=== PATIENT | male | born 1935 | race Caucasian/White ===

== ENCOUNTER 2019-06-05 13:05 | Day surgery (SDC) | payer MEDICARE, OTHER ==
[~2019-06-05] VITALS: Ht 182.9 cm; Wt 94.1 kg
[~2019-06-05 13:05] MED LIST: CELEBREX 200MG200 MG PO; FLEX-A-MIN PO; FLOMAX 0.40.4 MG/CAP PO; GAS RELIEF80 MG PO; GLUCOPHAGE1000 MG PO; JANUVIA25 MG PO; MICROZIDE12.5 MG PO; NEXIUM 40MG40 MG PO; OMEGA 31000 MG PO; SLEEP AID50 MG PO; TYLENOL 325MG325 MG PO
[2019-06-05 13:49] VITALS: BP 129/81; PULSE 83; TEMP 97.6
[2019-06-05] MEDS ORDERED: PROTONIX 40MG T40 MG PO (14:00)
[2019-06-05] MEDS ORDERED: JANUVIA 100MG100 MG PO (14:01)
[2019-06-05] MEDS ORDERED: JARDIANCE10 PO (14:01)
[2019-06-05] MEDS ORDERED: FLOMAX 0.40.4 MG/CAP PO (14:03)
[2019-06-05] MEDS ORDERED: CELEBREX 200MG200 MG PO (14:04)
[2019-06-05 14:15] VITALS: BP 111/64; PULSE 87; TEMP 97.4
--- NOTE | 2019-06-05 14:15 | NUR ---
Patient brought back to [facility] 2 via cart. Ambulated to chair without difficulty. Placed on monitors, stable. IV infusing without difficulty. Denies pain or nausea. Requesting cranberry juice and pudding. Warm blanket provided, call amaro within reach. Will continue to monitor.
[2019-06-05 14:30] VITALS: BP 108/64; PULSE 77
--- NOTE | 2019-06-05 14:30 | NUR ---
Daughter arrived at bedside. Explained that MD would like him to come back on Saturday for colonoscopy. Instructions provided. Office to call pt with time. Pt would like toast and cranberry juice. Vitals stable. states pt may leave without speaking to him.
[2019-06-05 14:45] VITALS: BP 118/77; PULSE 80
--- NOTE | 2019-06-05 14:45 | NUR ---
Patient states he is ready to go home at this time. IV removed. Patient to get dressed at this time.
--- NOTE | 2019-06-05 15:00 | NUR ---
Discharge instructions reviewed with patient and daughter all questions answered. Colonoscopy prep reviewed, all questions answered. Patient brought down to lobby via wheel chair. To be driven home by daughter.
== END 2019-06-05 15:00 | disposition home or self-care (01) ==
LOC: SDCO 13:05
DX: R10.13 Epigastric pain (principal); R19.5 Other fecal abnormalities; K29.70 Gastritis, unspecified, without bleeding; K44.9 Diaphragmatic hernia without obstruction or gangrene; E11.9 Type 2 diabetes mellitus without complications; K57.30 Diverticulosis of large intestine without perforation or abscess without bleeding; Z88.1 Allergy status to other antibiotic agents; Z88.8 Allergy status to other drugs, medicaments and biological substances
CPT/HCPCS: J2250; J3010

== ENCOUNTER 2019-06-09 13:59 | Day surgery (SDC) | payer MEDICARE, OTHER ==
[~2019-06-09] VITALS: Ht 182.9 cm; Wt 92.7 kg
[~2019-06-09 13:59] MED LIST changes: +JANUVIA 100MG100 MG PO; +JARDIANCE10 PO; +PROTONIX 40MG T40 MG PO
[2019-06-09 14:14] VITALS: BP 124/78; PULSE 89; TEMP 97.5
[2019-06-09] MEDS ORDERED: ALEVE 220MG220 MG PO (14:28)
[2019-06-09] MEDS ORDERED: SIMETHICONE80 MG PO (14:28)
--- NOTE | 2019-06-09 15:50 | NUR ---
The patient ambulated to the bathroom independently using a steady gait and appeared to tolerate the activity well. The patient is still waiting to go to his procedure. Call light is within reach. The patient denies any needs at this time. Will continue to monitor the patient.
[2019-06-09 16:45] VITALS: BP 108/75; PULSE 91; TEMP 97.6
--- NOTE | 2019-06-09 16:45 | NUR ---
The patient arrived back to [place] [facility] from the endoscopy suite at this time. The patient ambulated from the cart to recliner in his room with the stand by assistance of two nurses and appeared to tolerate the activity well. Post procedure vital signs were started at this time. The patient requests to try some cranberry juice and a muffin at this time. Call light is within reach. Will continue to monitor the patinet.
[2019-06-09 17:03] VITALS: BP 113/78; PULSE 86
--- NOTE | 2019-06-09 17:03 | NUR ---
The patient is sitting up in the recliner and appears to be tolerating the food and drink well. The patient's vital signs appear stable. Call light is within reach. Will continue to monitor the patient.
[2019-06-09 17:15] VITALS: BP 120/70; PULSE 80
--- NOTE | 2019-06-09 17:15 | NUR ---
Discharge instructions were reviewed with the patient at this time. He verbalized understanding and have no questions for the nurse at this time. The patient's IV to his right hand was removed and a pressure dressing was applied to the site. The patient is going to get dressed and notify the staff when he is ready to be escorted out. The patient's daughter was contacted by the nurse and is on her way to pick the patient up.
--- NOTE | 2019-06-09 17:25 | NUR ---
The patient was escorted out via wheelchair to a private vehicle by DIAMANTE Lyles. The patient's belongings and discharge paperwork were sent with him. The patient's daughter is present to drive him home.
== END 2019-06-09 17:25 | disposition home or self-care (01) ==
LOC: SDCO 13:59
DX: K92.1 Melena (principal); K57.30 Diverticulosis of large intestine without perforation or abscess without bleeding; K58.9 Irritable bowel syndrome, unspecified; E11.9 Type 2 diabetes mellitus without complications; K21.9 Gastro-esophageal reflux disease without esophagitis; Z90.49 Acquired absence of other specified parts of digestive tract; Z88.8 Allergy status to other drugs, medicaments and biological substances
CPT/HCPCS: J2250; J3010

== ENCOUNTER → 2019-08-31 | Outpatient (CLI) | payer MEDICARE, OTHER ==
[~2019-08-31] VITALS: Ht 182.9 cm; Wt 95.0 kg
[~2019-08-31] MED LIST changes: +ALEVE 220MG220 MG PO; +FIBER GUMMIES2.5 GM PO; +PROBIOTIC GOLD1 EACH PO; +SIMETHICONE80 MG PO; +TRELEGY ELLIPT1 EACH IH
[2019-08-31 06:22] VITALS: BP 150/84; PULSE 75
[2019-08-31 07:52] VITALS: BP 125/64; PULSE 88
[2019-08-31 07:53] VITALS: BP 133/72; PULSE 87
[2019-08-31 07:54] VITALS: BP 134/71; PULSE 82
[2019-08-31 07:55] VITALS: BP 138/71; PULSE 82
== END ==
LOC: COL.CARD 06:09
DX: R07.9 Chest pain, unspecified (principal); R06.00 Dyspnea, unspecified; K27.4 Chronic or unspecified peptic ulcer, site unspecified, with hemorrhage; J44.9 Chronic obstructive pulmonary disease, unspecified
CPT/HCPCS: A9500; J2785

== ENCOUNTER → 2019-09-03 | Outpatient (CLI) | payer MEDICARE, OTHER | LOC: RT 07:30 → COL.PUL 11:30 | DX: J44.9 Chronic obstructive pulmonary disease, unspecified (principal); K27.4 Chronic or unspecified peptic ulcer, site unspecified, with hemorrhage ==

== ENCOUNTER → 2019-09-17 | Outpatient (CLI) | payer MEDICARE, OTHER | LOC: COL.PUL 07:45 | DX: J44.9 Chronic obstructive pulmonary disease, unspecified (principal); F17.210 Nicotine dependence, cigarettes, uncomplicated ==

== ENCOUNTER 2019-09-25 12:56 | Day surgery (SDC) | payer MEDICARE, OTHER ==
[2019-09-25] VITALS (10 sets, daily range): BP systolic 121–169; BP diastolic 72–94; PULSE 62–74; TEMP 98.1
[~2019-09-25] VITALS: Ht 182.9 cm; Wt 93.8 kg
[2019-09-25 13:49] LABS: HEMATOCRIT 42.7 % (42.0-52.0); HEMOGLOBIN 14.2 g/dl (13.5-18.0); MEAN CELL VOLUME 98 fl (80.0-100.0); MEAN CORPUSCULAR HEMOGLOBIN 33 pg (27.0-31.0); MEAN CORPUSCULAR HGB CONC 33 g/dl (33.0-37.0); PLATELET COUNT 239 K/mm3 (130-400); RED BLOOD COUNT 4.35 M/mm3 (4.20-5.60); REDCELL DISTRIBUTION WIDTH-CV 12.5 % (11.5-14.5)
[2019-09-25 13:56] LABS: CALCIUM 9.3 mg/dL (8.4-10.2); CREATININE, serum 0.85 (0.66-1.25); POTASSIUM 4.1 mmol/L (3.4-5.0)
[2019-09-25 14:05] LABS: INR 1.2 (0.8-3.0); PROTHROMBIN TIME 12.9 SECONDS (9.7-12.8)
[2019-09-25 14:07] LABS: PARTIAL THROMBOPLASTIN TIME 35.1 SECONDS (26.0-37.0)
--- NOTE | 2019-09-25 15:34 | NUR ---
SEE AWILDA FOR ALL MEDICATION ADMINISTRATION TIMES AND INTRA AND POST SEDATION ASSESSMENTS
--- NOTE | 2019-09-25 15:55 | NUR ---
Pt is back from laborer driver, bs report from Adilene BOBBY. Pt is awake and alert, pwd, cms intact to rt hand, wctm.
--- NOTE | 2019-09-25 19:05 | NUR ---
TR BAND WAS REMOVED AT 1735, SITE REMAINED FREE OF BLEEDING OR HEMATOMA, SITE DRESSED WITH A BANDAID THEN A COMPRESSION DRESSING WITH A 2X2 AND COBAN. CMS INTACT DISTAL. PT ADVISED TO LOOSEN DRESSING IF ANY SIGN OF CIRCULATORY COMPROMISE LIKE TINGLING TO FINGERS OR DECREASED CAP REFILL. IV WAS DC'D CATH INTACT, DRESSING APPLIED. PT WAS ESCORTED TO EXIT VIA WHEELCHAIR WHERE HIS DAUGHTER WAS WAITING TO PICK HIM UP.
--- NOTE | 2019-09-25 19:11 | NUR ---
10 CC AIR HAS BEEN REMOVED FROM BAND, SITE LOOKS GOOD. I HAVE REVIEWED DC AND F/U INSTRUCTIONS WITH PATIENT. HE DOES NOT HAVE ANY QUESTIONS AT THIS TIME/ PT HAS BEEN AMBULATORY IN ROOM WITH STEADY GAIT, HAS VOIDED, HAS BEEN ABLE TO EAT DINNER.
== END 2019-09-25 19:17 | disposition home or self-care (01) ==
LOC: COL.CAR 12:56
PROVIDERS: Internal Medicine Interventional Cardiology
DX: I25.119 Atherosclerotic heart disease of native coronary artery with unspecified angina pectoris (principal); R94.39 Abnormal result of other cardiovascular function study; J44.9 Chronic obstructive pulmonary disease, unspecified; Z87.891 Personal history of nicotine dependence; Z79.51 Long term (current) use of inhaled steroids; Z90.49 Acquired absence of other specified parts of digestive tract; Z11.59 Encounter for screening for other viral diseases
CPT/HCPCS: J1644; J2250; J3010

== ENCOUNTER 2020-04-11 16:29 | Inpatient (IN) | payer MEDICARE, OTHER ==
[~2020-04-11] VITALS: Ht 182.9 cm; Wt 96.3 kg
[2020-04-11 17:03] LABS: BASO % 0.3 % (0.0-2.0); EOS # 0.1 (0.0-0.7); EOS % 1.4 % (0-4.0); GRAN # 5.8 (1.4-6.5); GRAN % 73.5 % (42.2-75.2); HEMATOCRIT 42.1 % (42.0-52.0); HEMOGLOBIN 14.6 g/dl (13.5-18.0); LYMPH # 1.1 (1.2-3.4); LYMPH % 13.4 % (20.0-51.0); MEAN CELL VOLUME 97 fl (80.0-100.0); MEAN CORPUSCULAR HEMOGLOBIN 34 pg (27.0-31.0); MEAN CORPUSCULAR HGB CONC 35 g/dl (33.0-37.0); MEAN PLATELET VOLUME 8.9 fl (7.4-10.4); MONO # 0.9 (0.1-0.6); PLATELET COUNT 245 K/mm3 (130-400); RED BLOOD COUNT 4.36 M/mm3 (4.20-5.60); REDCELL DISTRIBUTION WIDTH-CV 12.4 % (11.5-14.5)
[2020-04-11 17:20] LABS: ALANINE AMINOTRANSFERASE 26 U/L (4-49); ALBUMIN 3.8 gm/dL (3.5-5.0); ALKALINE PHOSPHATASE 86 U/L (50-136); ANION GAP 9 mmol/L (7-16); AST,SGOT 31 U/L (15-37); BILIRUBIN,TOTAL 0.9 mg/dL (0.0-1.0); BLOOD UREA NITROGEN 14 mg/dL (9-20); C-REACTIVE PROTEIN 5.1 mg/dL (0.0-0.9); CALCIUM 8.7 mg/dL (8.4-10.2); CARBON DIOXIDE 27 mmol/L (22-30); CHLORIDE 102 mmol/L (98-107); CREATININE, serum 0.75 (0.66-1.25); GLUCOSE 146 mg/dL (74-106); LIPASE 110 U/L (23-300); POTASSIUM 3.6 mmol/L (3.4-5.0); SODIUM 138 mmol/L (137-145); TOTAL PROTEIN 7.2 gm/dL (6.4-8.2)
[2020-04-11 17:29] LABS: TROPONIN-I < 0.012 ng/mL (0.000-0.035)
[2020-04-11 21:26] VITALS: BP 130/67; PULSE 74; TEMP 97.8
[2020-04-11 21:34] VITALS: BP 130/67; PULSE 74; TEMP 97.8
--- NOTE | 2020-04-11 22:05 | NUR ---
Recieved patient from ER. He is alert and oriented. He is on room air with SPO2 of 91%. RT placed him on O2 at 2lpm via NC. Assesment and med rec completed. Patient denies pain. With INT on left AC. Informed patient regarding sputum sample. Call light within reach. He is independent in the room. Bases of lungs are diminshed. Instructed patient on lab works in the morning and frequency of accuchecks.
[2020-04-11 23:24] VITALS: BP 131/60; PULSE 72; TEMP 98
[2020-04-12 03:39] VITALS: BP 133/58; PULSE 66; TEMP 97.6
[2020-04-12 07:32] VITALS: BP 119/61; PULSE 80; TEMP 97.8
--- NOTE | 2020-04-12 09:00 | NUR ---
Shift assessment complete. Pt sitting up in bed eating breakfast. NC off pt at this time, pt reports takes it on and off as needed. Sats stable w/o O2. Reports mild SOA when up moving around. Heart RRR, lungs CTA, A&Ox4. Denies needs at this time. Call light in reach.
[2020-04-12 09:47] LABS: BASO % 0.1 % (0.0-2.0); GRAN # 7.4 (1.4-6.5); GRAN % 84.9 % (42.2-75.2); HEMATOCRIT 41.7 % (42.0-52.0); HEMOGLOBIN 14.6 g/dl (13.5-18.0); LYMPH # 0.7 (1.2-3.4); LYMPH % 8.2 % (20.0-51.0); MEAN CELL VOLUME 96 fl (80.0-100.0); MEAN CORPUSCULAR HEMOGLOBIN 34 pg (27.0-31.0); MEAN CORPUSCULAR HGB CONC 35 g/dl (33.0-37.0); MEAN PLATELET VOLUME 9.3 fl (7.4-10.4); MONO # 0.5 (0.1-0.6); MONO % 6.2 % (1.7-9.3); PLATELET COUNT 293 K/mm3 (130-400); RED BLOOD COUNT 4.36 M/mm3 (4.20-5.60); REDCELL DISTRIBUTION WIDTH-CV 12.2 % (11.5-14.5)
[2020-04-12 10:05] LABS: ALBUMIN 3.8 gm/dL (3.5-5.0); CALCIUM 8.9 mg/dL (8.4-10.2); CREATININE, serum 0.71 (0.66-1.25); POTASSIUM 3.7 mmol/L (3.4-5.0); TOTAL PROTEIN 7.2 gm/dL (6.4-8.2)
--- NOTE | 2020-04-12 11:14 | NUR ---
The patient is Covid positive. Ski Molder attemtped to contact the patient via room phone and he did not answer. SW contacted the patient's daughter, Roberto to complete intake. The patient lives in [place] with Roberto. The patient is independent. He does have a cane, walker, shower chair and other DME but does not need them. The equipment belonged to his late . The patient does not have advanced directives in the EMR but Roberto states they are complete and designate her. The patient has another child, a son named Jerri Bui. The plan is for the patient to return home at discharge. PT/OT ordered.
[2020-04-12 11:25] VITALS: BP 120/62; PULSE 86; TEMP 97.2
[2020-04-12 16:08] VITALS: BP 120/65; PULSE 77; TEMP 97.9
--- NOTE | 2020-04-12 18:55 | NUR ---
Received report from Yudith. Seen patient sitting in bed, eating his dinner and watching TV. He is on O2 at 2lpm via NC. He denies needs at this time. Will see patient again.
[2020-04-12 19:44] VITALS: BP 132/65; PULSE 71; TEMP 97.6
--- NOTE | 2020-04-12 21:00 | NUR ---
Assesment done. Patient denies pain. No difficulty of breathing. Glucose at 177mg/dl. Still for sputum specimen.
[2020-04-13 08:00] VITALS: BP 117/50; PULSE 58; TEMP 97.7
[2020-04-13 12:01] VITALS: BP 128/64; PULSE 67; TEMP 97.8
[2020-04-13 12:37] LABS: BASO % 0.1 % (0.0-2.0); GRAN # 7.7 (1.4-6.5); GRAN % 79.9 % (42.2-75.2); HEMATOCRIT 36.1 % (42.0-52.0); HEMOGLOBIN 12.9 g/dl (13.5-18.0); LYMPH % 10.9 % (20.0-51.0); MEAN CELL VOLUME 96 fl (80.0-100.0); MEAN CORPUSCULAR HEMOGLOBIN 34 pg (27.0-31.0); MEAN CORPUSCULAR HGB CONC 36 g/dl (33.0-37.0); MEAN PLATELET VOLUME 9.3 fl (7.4-10.4); MONO # 0.8 (0.1-0.6); MONO % 8.4 % (1.7-9.3); PLATELET COUNT 325 K/mm3 (130-400); RED BLOOD COUNT 3.76 M/mm3 (4.20-5.60); REDCELL DISTRIBUTION WIDTH-CV 12.4 % (11.5-14.5)
[2020-04-13 13:44] LABS: CALCIUM 8.5 mg/dL (8.4-10.2); CREATININE, serum 0.71 (0.66-1.25); POTASSIUM 3.8 mmol/L (3.4-5.0)
[2020-04-13 16:11] VITALS: BP 128/72; PULSE 64; TEMP 98
--- NOTE | 2020-04-13 17:51 | NUR ---
Patient has had uneventful shift. Showered. Remains indepedent in room and is doing well. No complaitns of pain or discomfort.
--- NOTE | 2020-04-13 20:00 | NUR ---
Assessment complete. Patient is alert and oriented with no complaints of pain. Lung sounds are clear and patient is breathing well on RA. Heart rate is regular with normal rate. L a/c IV flushes well. No new concerns at this time, will continue to monitor.
[2020-04-13 20:08] VITALS: BP 133/63; PULSE 62; TEMP 97.6
[2020-04-14] VITALS (7 sets, daily range): BP systolic 112–139; BP diastolic 55–79; PULSE 54–74; TEMP 97.5–98.2
--- NOTE | 2020-04-14 05:00 | NUR ---
Patient has had a restful, uneventful night. He has remained on RA and is afebrile. He is currently resting in bed. Call light in reach.
[2020-04-14 07:31] LABS: BASO % 0.1 % (0.0-2.0); GRAN # 7.9 (1.4-6.5); GRAN % 83.1 % (42.2-75.2); HEMOGLOBIN 12.6 g/dl (13.5-18.0); LYMPH # 0.9 (1.2-3.4); LYMPH % 9.5 % (20.0-51.0); MEAN CELL VOLUME 96 fl (80.0-100.0); MEAN CORPUSCULAR HEMOGLOBIN 33 pg (27.0-31.0); MEAN CORPUSCULAR HGB CONC 34 g/dl (33.0-37.0); MEAN PLATELET VOLUME 9.2 fl (7.4-10.4); MONO # 0.7 (0.1-0.6); MONO % 6.8 % (1.7-9.3); PLATELET COUNT 321 K/mm3 (130-400); RED BLOOD COUNT 3.85 M/mm3 (4.20-5.60); REDCELL DISTRIBUTION WIDTH-CV 12.3 % (11.5-14.5)
[2020-04-14 07:38] LABS: HEMATOCRIT 36.8 % (42.0-52.0)
[2020-04-14 07:44] LABS: BILIRUBIN,TOTAL 0.4 mg/dL (0.0-1.0); CALCIUM 8.6 mg/dL (8.4-10.2); CREATININE, serum 0.68 (0.66-1.25); POTASSIUM 3.9 mmol/L (3.4-5.0)
--- NOTE | 2020-04-14 09:31 | NUR ---
Assessment complete. Patient sitting up in bed eating breakfast on entry. States he had a pretty good night. Pt remains on 1L of O2 at this time. No complaints of pain or discomfort. Patient independent in room with no issues. No other needs. Call light is in reach.
--- NOTE | 2020-04-14 19:37 | NUR ---
Received report from Gosia. Seen patient awake in bed, watching TV. He is on O2 at 1lpm via NC. He denies pain. With INT on left AC flushes well. He reports having watery stools this morning. He requests for sherbet. Informed him I can give one after checking his blood glucose. No other needs at this time.
[2020-04-15 03:25] VITALS: BP 123/53; PULSE 60; TEMP 97.5
--- NOTE | 2020-04-15 06:57 | NUR ---
Patient had uneventful night. He is still on O2 at 1lpm via NC. Glucose this morning is 154mg/dl. No other needs noted. Endorsed to day shift.
[2020-04-15 08:47] VITALS: BP 138/60; PULSE 62; TEMP 97.4
--- NOTE | 2020-04-15 10:45 | NUR ---
Patient alert and oriented, denies pain, shortness of air, diarrhea/bloody stool. no new symptoms. Patient ambulate independently in the room. express good appetite towards meal. 90% on 1.0L, increased to 1.5L at 92%. Patient said he is anticipating discharge today, resting in bed at this time.
[2020-04-15] MEDS ORDERED: DECADRON6 MG PO (11:54)
[2020-04-15] MEDS ORDERED: DOXYCYCLINE 10100 MG PO (11:58)
[2020-04-15] MEDS ORDERED: OMNICEF 300MG300 MG PO (11:59)
[2020-04-15 12:00] VITALS: BP 137/68; PULSE 59; TEMP 97.3
[2020-04-15] MEDS ORDERED: PROAIR HFA0.09 MG/AC IH (12:05)
[2020-04-15] MEDS ORDERED: OXYGEN (13:39)
[2020-04-15 14:03] LABS: HEMATOCRIT 41.7 % (42.0-52.0); HEMOGLOBIN 14.5 g/dl (13.5-18.0)
--- NOTE | 2020-04-15 14:15 | NUR ---
The patient is to tentatively discharge today, 04/15 with PT and [facility] home health services. LUCÍA contacted the patient to review Medicare.gov list of home health agencies. He chose [facility]. Referral faxed. The patient is requiring oxygen and chose [facility]. Oxygen script faxed. Marco with [facility] reports they can deliver the oxygen at approximately 1500. LUCÍA contacted the patient's daughter, Roberto regarding the above information and she was in agreeance with the discharge plan. LUCÍA presented the IM form to the patient via room phone. The patient verbalized understanding and gave SW permission to sign form on his behalf. A copy was provided to the patient and original was placed in the chart. LUCÍA collaborted the above information with the patient's nurse.
--- NOTE | 2020-04-15 15:00 | NUR ---
Patient qualified for 2L of O2 for discharge after exercise oximetry. HGB 14.5. Discharged home with decadron, doxycycline, cefdinir, Albuterol. Follow up appt to check hgb on 04/18, pcp appt on 04/28. received dose of remedesivir before discharging home with daughter. INT discontinued.
== END 2020-04-15 15:45 | disposition home or self-care (01) | DRG 177 ==
LOC: COL.ER 16:29 → MEDICAL 18:22
PROVIDERS: Physician Assistant; Student in an Organized Health Care Education/Training Program; ADMIT Student in an Organized Health Care Education/Training Program
DX: U07.1 COVID-19 (principal); J12.82 Pneumonia due to coronavirus disease 2019; J44.9 Chronic obstructive pulmonary disease, unspecified; N40.0 Benign prostatic hyperplasia without lower urinary tract symptoms; Z96.653 Presence of artificial knee joint, bilateral; K59.00 Constipation, unspecified; K21.9 Gastro-esophageal reflux disease without esophagitis; Z66 Do not resuscitate; E11.9 Type 2 diabetes mellitus without complications; A08.8 Other specified intestinal infections; D64.9 Anemia, unspecified; I25.10 Atherosclerotic heart disease of native coronary artery without angina pectoris; Z90.49 Acquired absence of other specified parts of digestive tract; Z79.4 Long term (current) use of insulin; Z87.891 Personal history of nicotine dependence
CPT/HCPCS: 99223-AI; 99232-AI; 99233-AI; 99239; J0696; J1100; J1650; J1815; J7050; J7120; J8540

== ENCOUNTER 2020-05-20 09:43 | Observation (INO) | payer MEDICARE, OTHER ==
[~2020-05-20] VITALS: Ht 182.9 cm; Wt 95.5 kg
[~2020-05-20 09:43] MED LIST changes: +DECADRON6 MG PO; +DOXYCYCLINE 10100 MG PO; +OMNICEF 300MG300 MG PO; +OXYGEN; +PROAIR HFA0.09 MG/AC IH
[2020-05-20 10:06] LABS: BASO # 0.1 (0.0-0.2); BASO % 0.5 % (0.0-2.0); EOS # 0.3 (0.0-0.7); EOS % 1.9 % (0-4.0); GRAN # 12.2 (1.4-6.5); GRAN % 79.4 % (42.2-75.2); HEMATOCRIT 42.5 % (42.0-52.0); HEMOGLOBIN 14.5 g/dl (13.5-18.0); LYMPH # 1.3 (1.2-3.4); LYMPH % 8.5 % (20.0-51.0); MEAN CELL VOLUME 98 fl (80.0-100.0); MEAN CORPUSCULAR HEMOGLOBIN 33 pg (27.0-31.0); MEAN CORPUSCULAR HGB CONC 34 g/dl (33.0-37.0); MEAN PLATELET VOLUME 8.8 fl (7.4-10.4); MONO # 1.4 (0.1-0.6); PLATELET COUNT 315 K/mm3 (130-400); RED BLOOD COUNT 4.36 M/mm3 (4.20-5.60); REDCELL DISTRIBUTION WIDTH-CV 13.7 % (11.5-14.5)
[2020-05-20 10:18] LABS: ALANINE AMINOTRANSFERASE 20 U/L (4-49); ALBUMIN 4.1 gm/dL (3.5-5.0); ALKALINE PHOSPHATASE 105 U/L (50-136); ANION GAP 8 mmol/L (7-16); AST,SGOT 29 U/L (15-37); BLOOD UREA NITROGEN 14 mg/dL (9-20); CARBON DIOXIDE 27 mmol/L (22-30); CHLORIDE 102 mmol/L (98-107); CREATININE, serum 0.78 (0.66-1.25); GLUCOSE 186 mg/dL (74-106); POTASSIUM 4.1 mmol/L (3.4-5.0); SODIUM 137 mmol/L (137-145); TOTAL PROTEIN 7.6 gm/dL (6.4-8.2)
[2020-05-20 10:21] LABS: INR 1.2 (0.8-3.0); PROTHROMBIN TIME 13.7 SECONDS (9.7-12.8)
[2020-05-20 10:23] LABS: PARTIAL THROMBOPLASTIN TIME 32.9 SECONDS (26.0-37.0)
[2020-05-20 10:32] LABS: TROPONIN-I < 0.012 ng/mL (0.000-0.035)
--- NOTE | 2020-05-20 15:59 | NUR ---
Ultrasound called re: Echo orders.
--- NOTE | 2020-05-20 16:21 | NUR ---
Patient admitted to room 346 via wheelchair from ED at 1435. Heparin gtt infusing.
[2020-05-20 16:30] VITALS: BP 153/77; PULSE 92; TEMP 97.1
--- NOTE | 2020-05-20 16:36 | NUR ---
Patient alert and oriented, answers questions appropriately. See assessment. Heart tones strong and even, pulses palpable. Lungs clear in upper lobes, decreased in bases. Oxgen at 2l/nc per patients baseline. Dr Quiñones has been in to see patient. No c/o at this time.
--- NOTE | 2020-05-20 16:53 | NUR ---
Notified ultrasound x2 of Echo. Relayed from ultrasound that they are not available at this time for services, may attempt to call ultrasound in am.
--- NOTE | 2020-05-20 18:11 | NUR ---
Hep XA 1.05. Heparin gtt stopped, redraw Hep XA at 1999.
[2020-05-20] MEDS ORDERED: CELEBREX 200MG200 MG PO (19:09)
[2020-05-20] MEDS ORDERED: ZYRTEC 10MG10 MG PO (19:10)
[2020-05-20] MEDS ORDERED: ALEVE 220MG220 MG PO (19:10)
[2020-05-20 19:33] VITALS: BP 134/78; PULSE 94; TEMP 97
--- NOTE | 2020-05-20 21:00 | NUR ---
Pt. sitting up in bed at this time. Pt. is A&OX3, assessment complete. INT to lt. foerarm patent. Pt. denies pain or other needs.
[2020-05-21 00:16] VITALS: BP 119/63; PULSE 78; TEMP 98
[2020-05-21 04:19] LABS: BASO # 0.1 (0.0-0.2); BASO % 0.6 % (0.0-2.0); EOS # 0.4 (0.0-0.7); EOS % 3.9 % (0-4.0); GRAN # 7.1 (1.4-6.5); GRAN % 69.5 % (42.2-75.2); HEMATOCRIT 38.1 % (42.0-52.0); HEMOGLOBIN 12.7 g/dl (13.5-18.0); LYMPH # 1.4 (1.2-3.4); LYMPH % 13.6 % (20.0-51.0); MEAN CELL VOLUME 99 fl (80.0-100.0); MEAN CORPUSCULAR HEMOGLOBIN 33 pg (27.0-31.0); MEAN CORPUSCULAR HGB CONC 33 g/dl (33.0-37.0); MEAN PLATELET VOLUME 8.8 fl (7.4-10.4); MONO # 1.2 (0.1-0.6); MONO % 11.6 % (1.7-9.3); PLATELET COUNT 293 K/mm3 (130-400); RED BLOOD COUNT 3.86 M/mm3 (4.20-5.60); REDCELL DISTRIBUTION WIDTH-CV 13.7 % (11.5-14.5)
[2020-05-21 04:30] LABS: CALCIUM 8.7 mg/dL (8.4-10.2); CREATININE, serum 0.69 (0.66-1.25)
[2020-05-21 04:59] VITALS: BP 109/50; PULSE 78; TEMP 98
--- NOTE | 2020-05-21 05:25 | NUR ---
HEP XA AT 0.47 NO CHANGE AT THIS TIME.
--- NOTE | 2020-05-21 06:49 | NUR ---
Sitting up on edge of bed. Alert and oriented x4. Rates pain 6/10, located under left breast, only happens when takes in deep breath and describes as sharp. Patient is aware that echo has been ordered and should be done today. Denies additional needs at this time.
[2020-05-21 07:59] VITALS: BP 103/59; PULSE 76; TEMP 97.4
--- NOTE | 2020-05-21 09:41 | NUR ---
Sitting up in bed watching TV. Discuss with the patient that the heparin drip will be stopped tonight at 2100 and Eliquis will be started at that time. Provided patient education material on Eliquis for patient to review and ask questions as needed. Discuss that respiratory will walk with him and monitor his oxygen levels as well at some time today. Patient rating pain in left chest area 5/10 with deep breaths and would like pain medication. Administer [place] as prescribed. Patient denies any additional needs at this time.
--- NOTE | 2020-05-21 11:02 | NUR ---
Sitting up in bed watching TV, in room with the patient. Pain has decreased some but when taking deep breaths returns. Patient denies additional needs or concerns at this time.
[2020-05-21 11:19] VITALS: BP 111/55; PULSE 92; TEMP 97.4
--- NOTE | 2020-05-21 12:34 | NUR ---
Sitting on edge of bed. Has finished eating lunch. Is going into bathroom at this time. May shower later but will let us know. Denies needs at this time.
--- NOTE | 2020-05-21 13:00 | NUR ---
SW met with patient to complete intake. Patient provides that he lives in [place] with his daughter Roberto who was present in room at time of intake. Roberto's number is: [phone], . Patient states that he does not utilize any DME and is independent with ADLs. Patient provides that his PCP is Dr. Queen, obtains medications from [facility], and is able to afford his medications at this time. Patient provides that his daughter has been appointed as his DPOA-HC, he states that the documentation is at his home, but he is unsure of the document location. Daughter provides that she is unsure of where the document is as well. Patient provides that he does not utilize any home health services at this time and does not feel as though he will need such services up on discharge. Patient plans to go back to his home up [place] and has no concersn with doing so. SW will continue to follow.
[2020-05-21 15:41] VITALS: BP 102/54; PULSE 84; TEMP 97.6
--- NOTE | 2020-05-21 16:08 | NUR ---
Sitting up in bed with eyes open. Rates pain to left chest 6/10 with deep breaths that is sharp. Patient would like pain medication. Administer [place] as prescribed. Explain to the patient that lab will be coming by to draw some blood to check heparin levels and also H&H. Patient verbalizes understanding and denies further needs.
[2020-05-21 17:21] LABS: HEMATOCRIT 37.2 % (42.0-52.0); HEMOGLOBIN 12.7 g/dl (13.5-18.0)
--- NOTE | 2020-05-21 17:23 | NUR ---
Lying in bed watching TV. Pain is a little better. Has ordered dinner and is waiting on it to be delivered. Denies needs at this.
[2020-05-21 20:36] VITALS: BP 104/58; PULSE 85; TEMP 97.5
--- NOTE | 2020-05-21 20:45 | NUR ---
Pt. sitting up in bed at this time. Pt. is A&OX3, assessment complete. IV to lt. forearm patent, Heparin GTT running per orders. Will discontinue at 2100 and start eliquis. Pt. denies pain or other needs, call light within reach.
[2020-05-22 00:07] VITALS: BP 107/51; PULSE 77; TEMP 98.9
[2020-05-22 04:02] VITALS: BP 102/49; PULSE 74; TEMP 97.9
--- NOTE | 2020-05-22 06:55 | NUR ---
Sitting up in bed with eyes open watching TV. Alert and oriented x4. Rates pain in left chest 5/10 at this time, denies need for pain medication at this time and will let us know when he needs some. Has oxygen on, denies any shortness of air at rest, does get short of air with activity. Patient will order breakfast. Denies additional needs at this time.
[2020-05-22 07:40] LABS: BASO # 0.1 (0.0-0.2); BASO % 0.7 % (0.0-2.0); EOS # 0.5 (0.0-0.7); EOS % 5.4 % (0-4.0); GRAN # 5.7 (1.4-6.5); GRAN % 64.7 % (42.2-75.2); HEMATOCRIT 38.1 % (42.0-52.0); HEMOGLOBIN 12.6 g/dl (13.5-18.0); LYMPH # 1.4 (1.2-3.4); LYMPH % 16.3 % (20.0-51.0); MEAN CELL VOLUME 99 fl (80.0-100.0); MEAN CORPUSCULAR HEMOGLOBIN 33 pg (27.0-31.0); MEAN CORPUSCULAR HGB CONC 33 g/dl (33.0-37.0); MEAN PLATELET VOLUME 9.3 fl (7.4-10.4); MONO # 1.1 (0.1-0.6); MONO % 12.4 % (1.7-9.3); PLATELET COUNT 312 K/mm3 (130-400); RED BLOOD COUNT 3.86 M/mm3 (4.20-5.60); REDCELL DISTRIBUTION WIDTH-CV 13.5 % (11.5-14.5)
[2020-05-22 07:45] LABS: CREATININE, serum 0.75 (0.66-1.25); POTASSIUM 3.9 mmol/L (3.4-5.0)
[2020-05-22 08:00] VITALS: BP 112/65; PULSE 82; TEMP 97.2
[2020-05-22] MEDS ORDERED: ELIQUIS 5MG PO (09:15)
[2020-05-22] MEDS ORDERED: NORCO 325 MG-51 TAB PO (09:21)
--- NOTE | 2020-05-22 10:17 | NUR ---
Patient ambulating in halls with RT for exercise oximetry.
--- NOTE | 2020-05-22 10:22 | NUR ---
Sheri with RT reports that the patient requires 3L oxygen with activity. Updated JOHNSON Ferris. She will print orders at this time. Wendy with social work updated as well.
[2020-05-22] MEDS ORDERED: OXYGEN NASAL.CANN (10:23)
--- NOTE | 2020-05-22 10:41 | NUR ---
Sitting up in bed watching TV. Aware that he will be discharging. Explain that we will get all paperwork together and make sure the secondary social studies teacher is able to get all orders for his oxygen sent. He will have his daughter come to pick him up and he will call to let her know when he is ready. Patient rates pain in left chest 09/08, would like pain medication. Administer [place] as prescribed. Denies additional needs at this time.
[2020-05-22 11:29] VITALS: BP 121/70; PULSE 85; TEMP 97.7
--- NOTE | 2020-05-22 11:37 | NUR ---
Sitting up in chair eating lunch. Rates pain to left chest 3/10, feels the pain medication has helped. Patient denies needs at this time.
--- NOTE | 2020-05-22 12:13 | NUR ---
Patient will discharge home today 05/22 with daughter Roberto. Patient will require 3LPM of oxygen. SW faxed ox test and order to [facility] and contacted company. SW is waiting for return contact from [facility] stationary equipment mechanic.
--- NOTE | 2020-05-22 12:25 | NUR ---
Review all discharge instructions with the patient. Denies questions, signs all discharge paperwork. Discharge packet provided to the patient. 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
--- NOTE | 2020-05-22 13:30 | NUR ---
Patient daughter here with oxygen. Patient assisted out to POV via wheelchair with all personal belongings.
== END 2020-05-22 13:31 | disposition home or self-care (01) ==
LOC: COL.ER 09:43 → SURG 11:29
PROVIDERS: Family Medicine; ADMIT Student in an Organized Health Care Education/Training Program
DX: I26.99 Other pulmonary embolism without acute cor pulmonale (principal); J44.9 Chronic obstructive pulmonary disease, unspecified; E11.9 Type 2 diabetes mellitus without complications; K21.9 Gastro-esophageal reflux disease without esophagitis; N40.0 Benign prostatic hyperplasia without lower urinary tract symptoms; Z96.653 Presence of artificial knee joint, bilateral; Z79.4 Long term (current) use of insulin; Z79.899 Other long term (current) drug therapy; Z86.16 Personal history of COVID-19; Z79.52 Long term (current) use of systemic steroids; Z87.891 Personal history of nicotine dependence
CPT/HCPCS: 99239; G0378; J1644; J1815; J3010; Q9967